=== PATIENT | male | born 1995 | race Two or more races ===

== ENCOUNTER 2018-12-22 00:57 | Emergency (ER) | payer OTHER ==
[~2018-12-22] VITALS: Ht 185.4 cm; Wt 123.0 kg
[2018-12-22] MEDS ORDERED: IBUPROFEN 600 MG TABLET ONE (01:15)
--- NOTE | 2018-12-22 01:18 | NUR ---
PT MEDICATED PER MAR FOR L SIDE CP. DENIES INJURY. ALSO PAIN TO L UPPER ARM. PAIN CONSTANT FOR 1 WEEK. PT TO RADIOLOGY.
[2018-12-22 01:22] LABS: BASOPHILS # (AUTO) 0.03 x10^3/uL (0-0.1); BASOPHILS % (AUTO) 0 % (0-1); EOSINOPHILS # (AUTO) 0.21 x10^3/uL (0-0.4); EOSINOPHILS % (AUTO) 2 % (1-7); LYMPHOCYTES # (AUTO) 3.04 x10^3/uL (1-3.4); LYMPHOCYTES % (AUTO) 29 % (22-44); MD NO; MEAN CORPUSCULAR HEMOGLOBIN 29.5 pg (27.5-34.5); MEAN CORPUSCULAR HGB CONC 33.4 g/dL (33.2-36.2); MEAN CORPUSCULAR VOLUME 88.3 fL (81-97); MEAN PLATELET VOLUME 8.5 fL (7.4-10.4); MONOCYTES % (AUTO) 7 % (2-9); NEUTROPHILS # (AUTO) 6.38 x10^3/uL (1.8-6.8); NEUTROPHILS % (AUTO) 62 % (42-75); PLATELET COUNT 234 x10^3/uL (130-400); RED BLOOD COUNT 5.62 x10^6/uL (4.38-5.82); RED CELL DISTRIBUTION WIDTH 12.8 % (9.4-14.8)
[2018-12-22] MEDS ORDERED: IBUPROFEN 200 MG TABLET PO ONE (01:30)
[2018-12-22 01:35] LABS: ALBUMIN 4.1 g/dL (3.4-5.0); ANION GAP 7 mmol/L (5-15); CALCIUM 9.3 mg/dL (8.5-10.1); CHLORIDE 107 mmol/L (98-107)
[2018-12-22 01:39] LABS: ALANINE AMINOTRANSFERASE 65 U/L (12-78); ALKALINE PHOSPHATASE 84 U/L (45-117); BILIRUBIN,TOTAL 0.5 mg/dL (0.2-1.0); CREATININE 0.99 mg/dL (0.7-1.3); TOTAL PROTEIN 7.5 g/dL (6.4-8.2); TROPONIN I < 0.015 ng/mL (0.000-0.045)
[2018-12-22 02:00] VITALS: BP 110/87
== END 2018-12-22 02:03 | disposition home or self-care (01) ==
LOC: ED 01:55
DX: R07.89 Other chest pain (principal)
CPT/HCPCS: 36415; 71046; 80053; 84484; 85025; 93005; 99284

== ENCOUNTER 2020-03-18 14:11 | Emergency (ER) | payer OTHER ==
[~2020-03-18] VITALS: Ht 185.4 cm; Wt 126.7 kg
[2020-03-18 14:14] VITALS: BP 150/85
--- NOTE | 2020-03-18 14:30 | NUR ---
PT AMBULATORY TO ROOM 12 W/ C/O R HAND LAC W/ A RAZOR BLADE YESTERDAY. LAC NOTED TO BE SCABBED OVER. PT STATES HE CAME TO ED SECONDARY TO THE PAIN LAST NOC. PT RESTING ON NOAH. NATASHA.
--- NOTE | 2020-03-18 15:02 | NUR ---
DISCHARGE INSTRUCTIONS REVIEWED
== END 2020-03-18 15:04 | disposition home or self-care (01) ==
LOC: ED 14:45
DX: S61.411A Laceration without foreign body of right hand, initial encounter (principal); W26.9XXA Contact with unspecified sharp object(s), initial encounter; Y93.89 Activity, other specified; Y92.69 Other specified industrial and construction area as the place of occurrence of the external cause; Y99.0 Civilian activity done for income or pay
CPT/HCPCS: 12041; 99284